=== PATIENT | female | born 1990 | race Caucasian/White ===

== ENCOUNTER 2017-01-14 01:56 | Inpatient (IN) ==
[2017-01-14] MEDS ORDERED: FAMOTIDINE 20 MG/2 ML VIAL IV PRN (03:02)
[2017-01-14] MEDS ORDERED: BUTORPHANOL 2 MG/ML VIAL IV PRN (03:02)
[2017-01-14] MEDS ORDERED: ONDANSETRON 4 MG/2 ML VIAL IV PRN ×2 (03:02→12:24)
[2017-01-14] MEDS ORDERED: AMPICILLIN INJ 2,000 MG in SODIUM CHLORIDE 0.9% 100 ML IV ONE (03:05)
[2017-01-14] MEDS ORDERED: BUTORPHANOL 1 MG/ML VIAL IV PRN (03:06)
[2017-01-14] MEDS ORDERED: CITRIC ACID/SODIUM CITRATE 30 ML UDCUP PO ONE (03:06)
[2017-01-14] MEDS ORDERED: ALUMINUM/MAGNES/SIMETH MAX STR 30 ML UDCUP PO PRN (03:07)
[2017-01-14] MEDS: LACTATED RINGERS 1,000 ML IV SCH ×3 (03:30→08:39)
[2017-01-14 04:04] LABS: Basophils % 0.3 % (0.0-0.8); Eosinophils # 0.1 10*3/uL (0.0-0.87); Eosinophils % 0.7 % (0.00-10.9); Hematocrit 29.1 VOL% (35.7-47.0); Hemoglobin 9.1 GM/DL (12.0-16.0); Immature Granulocytes % 1.2 %; Immature Granulocytes Absolute 0.13 #; Lymphocytes # 2.1 10*3/uL (1.4-4.0); Lymphocytes % 18.5 % (21.3-54.2); Mean Corpuscular HGB Conc 31.3 GM/DL (32-36); Mean Corpuscular Hemoglobin 27 PG (27-34); Mean Corpuscular Volume 87.4 FL (87-102); Monocytes # 0.7 10*3/uL (0.11-0.8); Monocytes % 6.4 % (1.7-12.7); NRBC # 0.02 10*3/uL; Neutrophils # 8.1 10*3/uL (1.4-7.4); Neutrophils % 72.9 % (38.7-73.9); Platelet Count 336 T/CUMM (130-400); Red Blood Count 3.33 MC/CUMM (3.8-5.5); Red Cell Distribution Width 14.7 % (9.3-17.3); White Blood Count 11.2 T/CUMM (4-12)
[2017-01-14 04:28] LABS: Calcium 8.6 MG/DL (8.5-10.1)
[2017-01-14 04:29] LABS: Albumin 2.7 G/DL (3.4-5.0); Osmolality,Calculated 278.3 MOS/KG (273-304); Total Protein 5.9 G/DL (6.4-8.3)
[2017-01-14] MEDS ORDERED: MEPERIDINE 50 MG/1 ML VIAL IV ONE (06:31)
--- NOTE | 2017-01-14 07:11 | OB/GYN History & Physical ---
History of Present Illness Chief complaint: 39 weeks admitted for elective induction History of present illness: Ms. Mills is a 26 year old female Multigravida at 39 weeks estimated gestational age admitted for elective induction. Ultrasound estimated weight is 7 pounds medical clinical pelvimetry. Is consequently admitted for Pitocin induction. The risks benefits alternatives explained patient detail informed consent was obtained and all the patient's questions were answered to her satisfaction Home Medications Medication Instructions Recorded Confirmed Type Multivitamin () [ 1 tablet PO DAILY 12/19/16 01/14/17 History Vitamin] Allergies Allergy/AdvReac Type Severity Reaction Status Date / Time No Known Allergies Allergy Verified 01/02/17 14:35 12 point system: reviewed and no additional remarkable complaints except as stated Medical,Surgical,& Family Hx - Medical History Reproductive: No history of: Ectopic , Complication - Surgical History Abdominal Surgeries: Patient denies: Abdominal Surgery Reproductive Surgeries: Patient denies;: Section - Family History Family History: Reports;: Family Diabetes (MGM) Denies;: Family Anesthesia Reaction, Family Cancer, Family Heart Disease, Family Hematology, Family Hypertension, Family Psychiatric Problems, Family Stroke, Additional Family History - Social History Smoking Status: Never smoker Frequency of Alcohol Use: None Type of Drug Use: None 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: Vital Signs Temp Pulse Resp BP 01/14/17 04:00 98.6 F 75 18 119/57 General appearance: normal weight, no acute distress - Head Head exam: Present: normal inspection, normocephalic, atraumatic - Eye Eye exam: Present: EOMI - ENT ENT exam: Present: normal exam - Neck Neck exam: Present: normal inspection - Breast Breasts: as per HPI Menstruation: as per HPI - Cardiovascular Cardiovascular exam: Present: regular rate and rhythm - GI/Abdominal GI/Abdominal exam: Present: normal bowel sounds - Extremities Exam Extremities exam: Present: normal inspection, normal capillary refill - Back Exam Back exam: Present: normal inspection - Neurological Exam Neurological exam: Present: alert, oriented X3 - Psychiatric Psychiatric exam: Present: normal affect, normal mood - Skin Skin exam: Present: normal color, warm Assessment and Plan (1) with 39 completed weeks gestation Status: Acute Current Visit: Yes Results - Labs CBC & BMP: 01/14/17 03:35 01/14/17 03:35
[2017-01-14] MEDS ORDERED: diphenhydrAMINE 50 MG/1 ML VIAL IV PRN ×2 (07:19)
[2017-01-14] MEDS ORDERED: PROMETHAZINE 25 MG/1 ML VIAL IM ONE (07:19)
[2017-01-14] MEDS ORDERED: ePHEDrine 50 MG/ML AMP IV PRN (07:19)
[2017-01-14] MEDS ORDERED: ONDANSETRON 4 MG/2 ML VIAL IV ONE (07:19)
[2017-01-14] MEDS ORDERED: hydrOXYzine HCL 25 MG/1 ML VIAL IM PRN (07:19)
[2017-01-14] MEDS: AMPICILLIN INJ 1,000 MG in SODIUM CHLORIDE 0.9% 100 ML IV SCH ×2 (07:28→11:54)
[2017-01-14] MEDS: OXYTOCIN/LR 20 UNIT/1,000 ML BAG IV SCH (08:06)
[2017-01-14] MEDS: fentaNYL 2 MCG/ROPIV 0.2% EPID 150 ML EPIDURAL SCH (08:08)
[2017-01-14 09:48] LABS: Apearance,Urine CLEAR (Clear); Bilirubin,Urine Negative (Negative); Blood, Urine Negative (Negative); Glucose,Urine (UA) Negative (Negative); Ketones,Urine Negative (Negative); Nitrite,Urine Negative (Negative); Protein,Urine Negative; Urine Color Yellow (Yellow); Urine Specific Gravity 1.009 (1.001-1.035); Urine Urobilinogen < 2.0 EU/DL (0.2-1.0); WBC,Urine 1 /HPF (0-6)
[2017-01-14] MEDS ORDERED: DIPH/TET/ACEL PERT BOOSTER VACCINE 0.5 ML VIAL IM ONE (12:24)
[2017-01-14] MEDS ORDERED: HYDROCORTISONE 2.5% RECTAL CREAM 30 GM TUBE TOP PRN (12:24)
[2017-01-14] MEDS ORDERED: BISACODYL 10 MG SUPP RECTAL PRN (12:24)
[2017-01-14] MEDS ORDERED: ACETAMINOPHEN 325 MG TABLET PO PRN (12:24)
[2017-01-14] MEDS ORDERED: MEASLES/MUMPS/RUBELLA VACCINE 0.5 ML VIAL SUBCUT ONE (12:24)
[2017-01-14] MEDS ORDERED: BENZOCAINE 20%/MENTHOL 0.5% SPRAY 56 GM CAN TOP PRN (12:24)
[2017-01-14] MEDS ORDERED: OXYTOCIN/LR 20 UNIT/1,000 ML BAG IV ONE (12:24)
[2017-01-14] MEDS ORDERED: LANOLIN 50% CREAM 0.3 OZ TUBE TOP PRN (12:24)
[2017-01-14] MEDS ORDERED: WITCH HAZEL PADS 100/JAR TOP PRN (12:24)
[2017-01-14] MEDS ORDERED: RHO(D) IMMUNE GLOBULIN 300 MCG SYRINGE IM ONE (12:24)
--- NOTE | 2017-01-14 12:24 | OB/GYN Progress Note ---
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 Combs dictating vaginal delivery And in LDR environment under sterile conditions, the patient progressed to completely dilated. She was allowed to push and under [epidural] anesthesia had a normal spontaneous vaginal delivery of a live born [male] unweighed Apgars pending over a intact perineum. The infant's nose and oropharynx were bulb and DeLee suctioned, and the infant had spontaneous cry after delivery. The cord was doubly clamped and cut and the infant was handed over to the pediatric team for care. Cord blood was obtained the placenta delivered spontaneously intact and IV Pitocin was done. There were no cervical tears. There were no periurethral tears. Estimated blood loss was 250 mL. There were no complications. The bladder was emptied using a catheter prior to delivery. All sponge needle and instrument counts were correct -3 at the end of the delivery. The infant was taken to nursery in stable condition Exam METEOROLOGIST IN CHARGE - Constitutional Vitals: Vital Signs Temp Pulse Resp BP Pulse Ox 01/14/17 08:00 98.7 F 73 20 120/63 100 01/14/17 04:00 98.6 F 75 18 119/57 Results - Labs CBC & BMP: 01/14/17 03:35 01/14/17 03:35
[2017-01-14] MEDS ORDERED: METHYLERGONOVINE 0.2 MG/1 ML AMP ONE (12:28)
[2017-01-14] MEDS: oxyCODONE/ACETAMINOPHEN 5-325 MG TABLET PO PRN ×2 (15:24→21:00)
[2017-01-14] MEDS: IBUPROFEN 800 MG TABLET PO PRN (18:50)
[2017-01-14] MEDS: DOCUSATE SODIUM 100 MG CAPSULE PO SCH (21:09)
[2017-01-15] MEDS: oxyCODONE/ACETAMINOPHEN 5-325 MG TABLET PO PRN ×3 (03:50→16:02)
[2017-01-15] MEDS: IBUPROFEN 800 MG TABLET PO PRN ×4 (03:50→21:45)
[2017-01-15 06:12] LABS: Basophils # 0.1 10*3/uL (0.0-0.2); Basophils % 0.3 % (0.0-0.8); Eosinophils # 0.2 10*3/uL (0.0-0.87); Eosinophils % 1.6 % (0.00-10.9); Hematocrit 22.5 VOL% (35.7-47.0); Immature Granulocytes Absolute 0.16 #; Lymphocytes # 2.9 10*3/uL (1.4-4.0); Lymphocytes % 18.8 % (21.3-54.2); Mean Corpuscular HGB Conc 31.6 GM/DL (32-36); Mean Corpuscular Hemoglobin 27 PG (27-34); Mean Corpuscular Volume 86.5 FL (87-102); Mean Platelet Volume 10.4 FL (9.6-12.0); Monocytes # 0.9 10*3/uL (0.11-0.8); Monocytes % 5.8 % (1.7-12.7); NRBC # 0.02 10*3/uL; Neutrophils # 11.1 10*3/uL (1.4-7.4); Neutrophils % 72.5 % (38.7-73.9); Platelet Count 288 T/CUMM (130-400); Red Cell Distribution Width 14.7 % (9.3-17.3)
[2017-01-15 06:25] LABS: Hemoglobin 7.1 GM/DL (12.0-16.0); White Blood Count 15.3 T/CUMM (4-12)
--- NOTE | 2017-01-15 08:36 | OB/GYN Progress Note ---
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: Subj Interval history: Patient is doing well she is eating ambulating and voiding She is afebrile and her vital signs are stable Her fundus is firm and contracted She has decreased lochia Assessment #1 day #1 doing well Plan continue present management with expected DC tomorrow Exam DENTURE LABORATORY TECHNICIAN - Constitutional Vitals: Vital Signs Temp Pulse Resp BP Pulse Ox 01/15/17 08:00 60 18 01/15/17 07:26 97.3 F L 60 18 99/60 97 01/15/17 02:00 19 01/14/17 17:30 98.0 F 68 16 115/73 98 01/14/17 16:30 97.8 F 65 16 113/70 98 01/14/17 15:28 97.6 F 75 16 126/76 98 01/14/17 15:00 98.0 F 64 16 131/48 99 01/14/17 14:30 98.0 F 68 16 127/90 99 Results - Labs CBC & BMP: 01/15/17 05:14 01/14/17 03:35
[2017-01-15] MEDS: DOCUSATE SODIUM 100 MG CAPSULE PO SCH ×2 (08:47→20:49)
[2017-01-15] MEDS: MULTIVITAMIN (PRENATAL) TABLET PO SCH (08:47)
[2017-01-15] MEDS: FERROUS SULFATE 325 MG TABLET PO SCH (20:49)
[2017-01-16] MEDS: oxyCODONE/ACETAMINOPHEN 5-325 MG TABLET PO PRN ×3 (02:04→08:05)
[2017-01-16] MEDS: fentaNYL 2 MCG/ROPIV 0.2% EPID 150 ML EPIDURAL SCH (04:12)
[2017-01-16] MEDS: OXYTOCIN/LR 20 UNIT/1,000 ML BAG IV SCH (04:12)
--- NOTE | 2017-01-16 06:47 | Anesthesia Post-Op ---
Anesthesia Post OP - Post Ansesthetic Evaluation Patient seen in post op: Yes Resp: within normal limits CV: within normal limits Mental: within normal limits Temp: within normal limits [id number]-[id number]-[id number]: within normal limits Nausea and Vomiting: within normal limits Pain: within normal limits
[2017-01-16 07:47] VITALS: BP 120/74
[2017-01-16] MEDS: IBUPROFEN 800 MG TABLET PO PRN (08:05)
[2017-01-16] MEDS: MULTIVITAMIN (PRENATAL) TABLET PO SCH (08:05)
[2017-01-16] MEDS: FERROUS SULFATE 325 MG TABLET PO SCH (08:05)
[2017-01-16] MEDS: DOCUSATE SODIUM 100 MG CAPSULE PO SCH (08:05)
--- NOTE | 2017-01-16 10:08 | Discharge Summary ---
Hospital Course - Hospital Course Hospital Course: patient did well. She had quick return of bowel bladder function management afebrile and normotensive throughout her hospitalization. She is constantly discharged on day #2 on a regular diet Diagnosis - Discharge Diagnosis (1) with 39 completed weeks gestation Status: Acute Specialty Discharge - Follow Up or Referrals Follow up with: Jason Combs MD [Physician] - Discharge Plan - Discharge Data Disposition: Disch To Home/Self Care Condition at Discharge: Stable Discharge Diet: regular diet Activity: resume usual activities as tolerated, other (Pelvic rest) Hygiene: may shower Weight Bearing at Discharge: full weight bearing Driving: no restrictions Contact your physician if you experience:: fever over 101, Difficulty voiding, Redness or swelling, Nausea/Vomiting, Shortness of breath, Bleeding, pain uncontrolled by pain medications - Discharge Medications New Acetamin/Codeine 300-30 Tab [Tylenol/Codeine #3] 1 tablet PO Q4H PRN #15 tablet PRN Reason: Abdominal Pain Continue Multivitamin () [ Vitamin] 1 tablet PO DAILY - Follow Up or Referral Follow Up: Jason Combs MD [Physician] - 2 Weeks - Forms/Instructions Instructions: Vaginal Delivery (DC), Bleeding (DC) Exam - Constitutional Vitals: Period Temp Pulse Resp BP Sys/Archibald Pulse Ox Last 24 Hr 97.1 F-98.2 F 57-77 18-20 112-132/59-83 97-100 DS: Provider Date of admission: 01/14/17 03:02 Primary care physician: . No PCP Attending physician on admission: Jessica Recinos Consults: 01/14/17 03:02 Consult to Anesthesiology [CONS] Routine Consulting Provider: Reason for Anesthesiology: Epidural Consult Comment: Epidural for pain managment 01/14/17 12:25 Consult to Industrial Plant Custodian [CONS] Routine Consult Industrial Plant Custodian: Breast Feeding Discharging clinician: Jessica Recinos Expected date of discharge: 01/16/17
== END 2017-01-16 12:30 | disposition home or self-care (01) | DRG 560 ==
LOC: N.LDOUT 01:56 → N.LD 02:00 → N.OB 14:26
PROVIDERS: ADMIT Specialist; ATTEND Specialist

== ENCOUNTER 2019-05-14 19:44 | Inpatient (IN) ==
[2019-05-14] MEDS ORDERED: BUTORPHANOL 2 MG/ML VIAL IV PRN (20:02)
[2019-05-14] MEDS ORDERED: ONDANSETRON 4 MG/2 ML VIAL IV PRN ×2 (20:02→21:34)
[2019-05-14] MEDS ORDERED: LACTATED RINGERS 250 ML IV ONE (20:02)
[2019-05-14] MEDS ORDERED: FAMOTIDINE 20 MG/2 ML VIAL IV ONE (20:03)
[2019-05-14] MEDS ORDERED: hydrOXYzine HCL 25 MG/1 ML VIAL IM PRN (20:03)
[2019-05-14] MEDS ORDERED: diphenhydrAMINE 50 MG/1 ML VIAL IV PRN ×2 (20:03)
[2019-05-14] MEDS ORDERED: ePHEDrine 50 MG/ML AMP IV PRN (20:03)
[2019-05-14] MEDS ORDERED: CITRIC ACID/SODIUM CITRATE 30 ML UDCUP PO ONE (20:03)
[2019-05-14] MEDS ORDERED: PROMETHAZINE 25 MG/1 ML VIAL IM ONE (20:03)
[2019-05-14] MEDS ORDERED: LACTATED RINGERS 1,000 ML IV ONE (20:03)
[2019-05-14] MEDS ORDERED: NALOXONE 0.4 MG/ML VIAL IV PRN (20:03)
[2019-05-14 20:16] LABS: Basophils # 0.1 10*3/uL (0.0-0.2); Basophils % 0.5 % (0.0-0.8); Eosinophils # 0.1 10*3/uL (0.0-0.87); Eosinophils % 0.4 % (0.00-10.9); Hematocrit 27.5 VOL% (35.7-47.0); Immature Granulocytes % 1.2 %; Immature Granulocytes Absolute 0.15 #; Lymphocytes # 2.1 10*3/uL (1.4-4.0); Lymphocytes % 16.1 % (21.3-54.2); Mean Corpuscular HGB Conc 29.1 GM/DL (32-36); Mean Corpuscular Volume 77.7 FL (87-102); Mean Platelet Volume 9.8 FL (9.6-12.0); Monocytes % 4.3 % (1.7-12.7); NRBC # 0.03 10*3/uL; Neutrophils % 77.5 % (38.7-73.9); Platelet Count 362 T/CUMM (130-400); Red Blood Count 3.54 MC/CUMM (3.8-5.5); Red Cell Distribution Width 16.1 % (9.3-17.3); White Blood Count 12.7 T/CUMM (4-12)
[2019-05-14 20:23] LABS: Apearance,Urine CLEAR (Clear); Bilirubin,Urine Negative (Negative); Blood, Urine Small mg/dL (Negative); Glucose,Urine (UA) Negative (Negative); Ketones,Urine Negative (Negative); Mucus,Urine Occasional /LPF (Occasional); Nitrite,Urine Negative (Negative); Protein,Urine Negative; RBC,Urine 8 /HPF (0-4); Squamous Epithelial Cell,Urine Occasional /HPF (0-10); Urine Color Yellow (Yellow); Urine Specific Gravity 1.008 (1.001-1.035); Urine Urobilinogen < 2.0 EU/DL (0.2-1.0); WBC,Urine 6 /HPF (0-6)
[2019-05-14] MEDS ORDERED: fentaNYL 2 MCG/ROPIV 0.2% EPID 100 ML EPIDURAL SCH (20:30)
[2019-05-14] MEDS ORDERED: OXYTOCIN/LR 20 UNIT/1,000 ML BAG IV SCH (20:30)
[2019-05-14] MEDS ORDERED: LACTATED RINGERS 1,000 ML IV SCH (20:30)
[2019-05-14 20:31] LABS: Barbiturates Screen,Urine Negative (Negative); Benzodiazepines Screen,Urine Negative (Negative); Cannabinoid Screen,Urine Negative (Negative); Opiate Screen,Urine Positive (Negative); Phencyclidine Screen,Urine Negative (Negative)
[2019-05-14 20:38] LABS: Albumin 2.5 G/DL (3.4-5.0); Bilirubin,Total 0.7 MG/DL (0.2-1.0); Calcium 8.2 MG/DL (8.5-10.1); Osmolality,Calculated 271.7 MOS/KG (273-304); Total Protein 6.8 G/DL (6.4-8.3)
[2019-05-14] MEDS ORDERED: LIDOCAINE 1% 50 ML VIAL ONE (20:54)
[2019-05-14] MEDS ORDERED: miSOPROStoL 200 MCG TABLET ONE (20:55)
[2019-05-14] MEDS ORDERED: METHYLERGONOVINE 0.2 MG/1 ML AMP ONE (20:55)
[2019-05-14] MEDS ORDERED: CARBOPROST TROMETHAMINE 250 MCG/ML AMP IM ONE (20:55)
[2019-05-14] MEDS ORDERED: LANOLIN 50% CREAM 0.3 OZ TUBE TOP PRN (21:34)
[2019-05-14] MEDS ORDERED: RHO(D) IMMUNE GLOBULIN 300 MCG SYRINGE IM ONE (21:34)
[2019-05-14] MEDS ORDERED: BENZOCAINE 20%/MENTHOL 0.5% SPRAY 56 GM CAN TOP PRN (21:34)
[2019-05-14] MEDS ORDERED: HYDROCORTISONE 2.5% RECTAL CREAM 30 GM TUBE TOP PRN (21:34)
[2019-05-14] MEDS ORDERED: DIPH/TET/ACEL PERT BOOSTER VACCINE 0.5 ML VIAL IM ONE (21:34)
[2019-05-14] MEDS ORDERED: oxyCODONE/ACETAMINOPHEN 5-325 MG TABLET PO PRN (21:34)
[2019-05-14] MEDS ORDERED: MEASLES/MUMPS/RUBELLA VACCINE 0.5 ML VIAL SUBCUT ONE (21:34)
[2019-05-14] MEDS ORDERED: BISACODYL 10 MG SUPP RECTAL PRN (21:34)
[2019-05-14] MEDS ORDERED: OXYTOCIN/LR 20 UNIT/1,000 ML BAG IV ONE (21:34)
[2019-05-14] MEDS ORDERED: WITCH HAZEL PADS 100/JAR TOP PRN (21:34)
[2019-05-14] MEDS ORDERED: ACETAMINOPHEN 325 MG TABLET PO PRN (21:34)
[2019-05-15] MEDS: IBUPROFEN 800 MG TABLET PO PRN ×2 (01:53→11:22)
[2019-05-15] MEDS ORDERED: METHYLERGONOVINE 0.2 MG/1 ML AMP IM STA (02:25)
[2019-05-15] MEDS ORDERED: METHYLERGONOVINE 0.2 MG/1 ML AMP ONE (02:27)
[2019-05-15 05:22] LABS: Basophils # 0.1 10*3/uL (0.0-0.2); Basophils % 0.5 % (0.0-0.8); Eosinophils # 0.1 10*3/uL (0.0-0.87); Eosinophils % 0.4 % (0.00-10.9); Hematocrit 25.8 VOL% (35.7-47.0); Hemoglobin 7.6 GM/DL (12.0-16.0); Immature Granulocytes % 0.8 %; Lymphocytes # 2.1 10*3/uL (1.4-4.0); Lymphocytes % 15.5 % (21.3-54.2); Mean Corpuscular HGB Conc 29.5 GM/DL (32-36); Mean Corpuscular Volume 76.3 FL (87-102); Mean Platelet Volume 10.5 FL (9.6-12.0); Monocytes % 5.6 % (1.7-12.7); NRBC # 0.02 10*3/uL; Neutrophils % 77.2 % (38.7-73.9); Platelet Count 349 T/CUMM (130-400); Red Blood Count 3.38 MC/CUMM (3.8-5.5); White Blood Count 13.3 T/CUMM (4-12)
[2019-05-15] MEDS: DOCUSATE SODIUM 100 MG CAPSULE PO SCH ×2 (09:16→20:40)
[2019-05-15] MEDS: oxyCODONE/ACETAMINOPHEN 5-325 MG TABLET PO PRN (11:20)
[2019-05-15] MEDS: FERROUS SULFATE 325 MG TABLET PO SCH (20:40)
[2019-05-16] MEDS: IBUPROFEN 800 MG TABLET PO PRN ×2 (01:20→09:25)
[2019-05-16] MEDS: oxyCODONE/ACETAMINOPHEN 5-325 MG TABLET PO PRN ×2 (01:20→09:28)
[2019-05-16] MEDS: FERROUS SULFATE 325 MG TABLET PO SCH (09:26)
[2019-05-16] MEDS: DOCUSATE SODIUM 100 MG CAPSULE PO SCH (09:26)
[2019-05-16 13:30] VITALS: BP 118/61
== END 2019-05-16 15:44 | disposition home or self-care (01) | DRG 560 ==
LOC: N.LDOUT 19:44 → N.LD 19:46 → N.OB 23:03
PROVIDERS: ADMIT Specialist; ATTEND Specialist

== ENCOUNTER 2020-08-22 18:26 | Inpatient (IN) ==
[2020-08-22] MEDS ORDERED: ACETAMINOPHEN 325 MG TABLET PO PRN ×2 (18:47→21:12)
[2020-08-22] MEDS ORDERED: MEPERIDINE 50 MG/1 ML VIAL IM PRN (18:47)
[2020-08-22] MEDS ORDERED: ONDANSETRON 4 MG/2 ML VIAL IV PRN ×2 (18:47→21:12)
[2020-08-22] MEDS ORDERED: BUTORPHANOL 2 MG/ML VIAL IV PRN (18:47)
[2020-08-22] MEDS ORDERED: LACTATED RINGERS 500 ML IV PRN (18:47)
[2020-08-22] MEDS ORDERED: FAMOTIDINE 20 MG/2 ML VIAL IV ONE ×2 (19:00→19:01)
[2020-08-22] MEDS ORDERED: ONDANSETRON 4 MG/2 ML VIAL IV ONE (19:00)
[2020-08-22] MEDS ORDERED: LACTATED RINGERS 1,000 ML IV ONE (19:00)
[2020-08-22] MEDS ORDERED: PROMETHAZINE 25 MG/1 ML VIAL IM ONE (19:00)
[2020-08-22] MEDS ORDERED: NALOXONE 0.4 MG/ML VIAL IV PRN (19:00)
[2020-08-22] MEDS ORDERED: diphenhydrAMINE 50 MG/1 ML VIAL IV PRN ×2 (19:00)
[2020-08-22] MEDS ORDERED: hydrOXYzine HCL 25 MG/1 ML VIAL IM PRN (19:00)
[2020-08-22] MEDS ORDERED: CITRIC ACID/SODIUM CITRATE 30 ML UDCUP PO ONE (19:00)
[2020-08-22] MEDS ORDERED: fentaNYL 2 MCG/ROPIV 0.2% EPID 100 ML EPIDURAL SCH (19:00)
[2020-08-22] MEDS ORDERED: CITRIC ACID/SODIUM CITRATE 30 ML UDCUP ONE (19:00)
[2020-08-22] MEDS ORDERED: ePHEDrine 50 MG/ML VIAL IV PRN (19:00)
[2020-08-22] MEDS ORDERED: LACTATED RINGERS 1,000 ML IV SCH (19:00)
[2020-08-22] MEDS ORDERED: miSOPROStoL 200 MCG TABLET ONE (19:07)
[2020-08-22] MEDS ORDERED: METHYLERGONOVINE 0.2 MG/1 ML AMP ONE (19:07)
[2020-08-22] MEDS ORDERED: TRANEXAMIC ACID 1,000 MG/10 ML VIAL ONE (19:07)
[2020-08-22] MEDS ORDERED: OXYTOCIN/LR 20 UNIT/1,000 ML BAG IV ONE ×2 (19:07→21:12)
[2020-08-22] MEDS ORDERED: CARBOPROST TROMETHAMINE 250 MCG/ML AMP IM ONE (19:07)
[2020-08-22] MEDS ORDERED: SODIUM CHLORIDE 0.9% 0 ML IV ONE (19:08)
[2020-08-22] MEDS ORDERED: LIDOCAINE 1% 50 ML VIAL ONE (19:08)
[2020-08-22 19:14] LABS: Basophils # 0.1 10*3/uL (0.0-0.2); Basophils % 0.5 % (0.0-0.8); Eosinophils # 0.1 10*3/uL (0.0-0.87); Eosinophils % 0.6 % (0.00-10.9); Hematocrit 27.8 VOL% (35.7-47.0); Hemoglobin 8.4 GM/DL (12.0-16.0); Immature Granulocytes % 1.7 %; Immature Granulocytes Absolute 0.26 #; Lymphocytes # 2.5 10*3/uL (1.4-4.0); Lymphocytes % 16.4 % (21.3-54.2); Mean Corpuscular HGB Conc 30.2 GM/DL (32-36); Mean Corpuscular Volume 78.8 FL (87-102); Mean Platelet Volume 9.1 FL (9.6-12.0); Monocytes % 5.9 % (1.7-12.7); NRBC # 0.02 10*3/uL; Neutrophils % 74.9 % (38.7-73.9); Platelet Count 441 T/CUMM (130-400); Red Blood Count 3.53 MC/CUMM (3.8-5.5); White Blood Count 15.3 T/CUMM (4-12)
[2020-08-22 19:31] LABS: Albumin 2.8 G/DL (3.4-5.0); Bilirubin,Total 0.6 MG/DL (0.2-1.0); Calcium 8.6 MG/DL (8.5-10.1); Osmolality,Calculated 277.3 MOS/KG (273-304); Potassium 3.5 MMOL/L (3.5-5.1); Total Protein 6.7 G/DL (6.4-8.3)
[2020-08-22 20:30] LABS: Bilirubin,Urine Negative (Negative); Blood, Urine Large mg/dL (Negative); Glucose,Urine (UA) Negative (Negative); Ketones,Urine Negative (Negative); Nitrite,Urine Negative (Negative); Protein,Urine Negative; Urine Appearance Slightly Hazy (Clear); Urine Color Yellow (Yellow); Urine Specific Gravity 1.016 (1.001-1.035)
[2020-08-22] MEDS ORDERED: OXYTOCIN/LR 20 UNIT/1,000 ML BAG IV SCH (20:30)
[2020-08-22] MEDS ORDERED: HYDROCORTISONE 2.5% RECTAL CREAM 30 GM TUBE TOP PRN (21:12)
[2020-08-22] MEDS ORDERED: RHO(D) IMMUNE GLOBULIN 300 MCG SYRINGE IM ONE (21:12)
[2020-08-22] MEDS ORDERED: MEASLES/MUMPS/RUBELLA VACCINE 0.5 ML VIAL SUBCUT ONE (21:12)
[2020-08-22] MEDS ORDERED: BENZOCAINE 20%/MENTHOL 0.5% SPRAY 56 GM CAN TOP PRN (21:12)
[2020-08-22] MEDS ORDERED: BISACODYL 10 MG SUPP RECTAL PRN (21:12)
[2020-08-22] MEDS ORDERED: LANOLIN 50% CREAM 0.3 OZ TUBE TOP PRN (21:12)
[2020-08-22] MEDS ORDERED: WITCH HAZEL PADS 100/JAR TOP PRN (21:12)
[2020-08-22] MEDS ORDERED: DIPH/TET/ACEL PERT BOOSTER VACCINE 0.5 ML VIAL IM ONE (21:12)
[2020-08-22 21:25] LABS: Cord Venous Blood HCO3 23.9 MMOL/L; Cord Venous Blood PCO2 46.7 MMHG; Cord Venous Blood PO2 28.5
[2020-08-22 22:05] LABS: Bilirubin,Urine Negative (Negative); Blood, Urine Moderate mg/dL (Negative); Glucose,Urine (UA) Negative (Negative); Ketones,Urine Negative (Negative); Nitrite,Urine Negative (Negative); Protein,Urine Negative; Urine Appearance CLOUDY (Clear); Urine Color Yellow (Yellow); Urine Specific Gravity 1.015 (1.001-1.035)
[2020-08-22 22:09] LABS: Amorphous Crystals,Urine Occasional /HPF (Few); RBC,Urine 202 /HPF (0-4); WBC,Urine 2 /HPF (0-6)
[2020-08-22 22:27] LABS: Barbiturates Screen,Urine Negative (Negative); Benzodiazepines Screen,Urine Negative (Negative); Cannabinoid Screen,Urine Negative (Negative); Opiate Screen,Urine Negative (Negative); Phencyclidine Screen,Urine Negative (Negative)
[2020-08-23] MEDS: IBUPROFEN 800 MG TABLET PO PRN ×2 (03:34→17:56)
[2020-08-23 04:23] LABS: Basophils # 0.1 10*3/uL (0.0-0.2); Basophils % 0.6 % (0.0-0.8); Eosinophils # 0.2 10*3/uL (0.0-0.87); Eosinophils % 0.9 % (0.00-10.9); Hematocrit 26.6 VOL% (35.7-47.0); Hemoglobin 7.9 GM/DL (12.0-16.0); Immature Granulocytes % 1.1 %; Immature Granulocytes Absolute 0.18 #; Lymphocytes # 2.9 10*3/uL (1.4-4.0); Lymphocytes % 17.8 % (21.3-54.2); Mean Corpuscular HGB Conc 29.7 GM/DL (32-36); Mean Corpuscular Volume 79.6 FL (87-102); Monocytes % 5.4 % (1.7-12.7); Neutrophils % 74.2 % (38.7-73.9); Platelet Count 396 T/CUMM (130-400); Red Blood Count 3.34 MC/CUMM (3.8-5.5); Red Cell Distribution Width 14.9 % (9.3-17.3); White Blood Count 16.2 T/CUMM (4-12)
[2020-08-23] MEDS: DOCUSATE SODIUM 100 MG CAPSULE PO SCH ×2 (10:07→20:19)
[2020-08-23] MEDS: FERROUS SULFATE 325 MG TABLET PO SCH ×3 (10:07→20:19)
[2020-08-24] MEDS: IBUPROFEN 800 MG TABLET PO PRN (06:40)
[2020-08-24 07:14] VITALS: BP 123/72
[2020-08-24] MEDS: FERROUS SULFATE 325 MG TABLET PO SCH ×2 (07:29→10:25)
[2020-08-24] MEDS: DOCUSATE SODIUM 100 MG CAPSULE PO SCH (10:25)
== END 2020-08-24 11:05 | disposition home or self-care (01) | DRG 560 ==
LOC: N.LDOUT 18:26 → N.LD 18:27 → N.OB 08-23 00:22
PROVIDERS: ADMIT Specialist; ATTEND Specialist

== ENCOUNTER 2022-03-16 21:44 | Observation (INO) ==
[2022-03-16 22:38] LABS: Basophils % 0.3 % (0.0-0.8); Eosinophils # 0.1 10*3/uL (0.0-0.87); Eosinophils % 0.9 % (0.00-10.9); Hematocrit 30.1 VOL% (35.7-47.0); Hemoglobin 9.8 GM/DL (12.0-16.0); Immature Granulocytes % 1.5 %; Immature Granulocytes Absolute 0.15 #; Lymphocytes # 1.6 10*3/uL (1.4-4.0); Lymphocytes % 15.4 % (21.3-54.2); Mean Corpuscular HGB Conc 32.6 GM/DL (32-36); Mean Corpuscular Volume 83.6 FL (87-102); Mean Platelet Volume 9.3 FL (9.6-12.0); Monocytes # 0.6 10*3/uL (0.11-0.8); Monocytes % 5.8 % (1.7-12.7); Neutrophils % 76.1 % (38.7-73.9); Platelet Count 308 T/CUMM (130-400); Red Cell Distribution Width 15.8 % (9.3-17.3); White Blood Count 10.3 T/CUMM (4-12)
[2022-03-16 22:49] LABS: PT Patient Result 10.9 SECS (10.1-12.1)
[2022-03-16 22:52] LABS: RBC,Urine 1 /HPF (0-4); Squamous Epithelial Cell,Urine Occasional /HPF (0-10)
[2022-03-16 22:53] LABS: Glucose,Urine (UA) Negative (Negative); Ketones,Urine Negative (Negative); Protein,Urine Negative (Negative); Urine Appearance Clear (Clear); Urine Color Yellow (Yellow); Urine Specific Gravity 1.005 (1.001-1.035)
[2022-03-16 22:54] LABS: Bilirubin,Urine Negative (Negative); Blood, Urine Moderate mg/dL (Negative); Nitrite,Urine Negative (Negative); Urine Urobilinogen 0.2 eU/dL (<2.0)
[2022-03-16] MEDS ORDERED: metroNIDAZOLE INJ 500 MG/100 ML PREMIX IV ONE (23:18)
[2022-03-16] MEDS ORDERED: ONDANSETRON 4 MG/2 ML VIAL IV PRN (23:18)
[2022-03-16] MEDS ORDERED: OXYTOCIN/LR 20 UNIT/1,000 ML BAG IV PRN (23:27)
[2022-03-16] MEDS: ceFAZolin 2,000 MG/50 ML DUPLEX IV SCH (23:32)
[2022-03-16] MEDS: LACTATED RINGERS 1,000 ML IV SCH (23:32)
[2022-03-16] MEDS: miSOPROStoL 200 MCG TABLET VAG SCH (23:32)
[2022-03-16 23:45] LABS: Calcium 8.3 MG/DL (8.5-10.1); Osmolality,Calculated 277.4 MOS/KG (273-304); Potassium 3.4 MMOL/L (3.5-5.1)
[2022-03-17 00:55] LABS: Barbiturates Screen,Urine Negative (Negative); Benzodiazepines Screen,Urine Negative (Negative); Cannabinoid Screen,Urine Negative (Negative); Opiate Screen,Urine Negative (Negative); Phencyclidine Screen,Urine Negative (Negative)
[2022-03-17] MEDS: miSOPROStoL 200 MCG TABLET VAG SCH ×3 (03:50→15:22)
[2022-03-17] MEDS: BUTORPHANOL 1 MG/ML VIAL IV PRN ×3 (05:33→15:09)
[2022-03-17] MEDS: ceFAZolin 2,000 MG/50 ML DUPLEX IV SCH (08:15)
[2022-03-17] MEDS: LACTATED RINGERS 1,000 ML IV SCH ×2 (08:30→16:41)
[2022-03-17] MEDS ORDERED: miSOPROStoL 200 MCG TABLET PO ONE (11:36)
[2022-03-17] MEDS ORDERED: PIPERACILLIN/TAZOBACTAM 3,375 MG in SODIUM CHLORIDE 0.9% 100 ML IV SCH (12:00)
[2022-03-17] MEDS ORDERED: SODIUM CHLORIDE 0.9% 1,000 ML IV PRN ×2 (16:25→22:13)
[2022-03-17 16:59] LABS: Basophils % 0.2 % (0.0-0.8); Eosinophils # 0.1 10*3/uL (0.0-0.87); Eosinophils % 1.4 % (0.00-10.9); Hematocrit 25.9 VOL% (35.7-47.0); Hemoglobin 8.2 GM/DL (12.0-16.0); Immature Granulocytes % 1.7 %; Immature Granulocytes Absolute 0.14 #; Lymphocytes # 1.5 10*3/uL (1.4-4.0); Lymphocytes % 18.9 % (21.3-54.2); Mean Corpuscular HGB Conc 31.7 GM/DL (32-36); Mean Corpuscular Volume 85.8 FL (87-102); Mean Platelet Volume 9.6 FL (9.6-12.0); Monocytes # 0.7 10*3/uL (0.11-0.8); Monocytes % 8.8 % (1.7-12.7); Platelet Count 308 T/CUMM (130-400); Red Blood Count 3.02 MC/CUMM (3.8-5.5); White Blood Count 8.1 T/CUMM (4-12)
[2022-03-17] MEDS ORDERED: SODIUM CHLORIDE 0.9% 100 ML IV ONE (18:18)
[2022-03-17] MEDS ORDERED: TRANEXAMIC ACID 1,000 MG/10 ML VIAL ONE (18:18)
[2022-03-17] MEDS ORDERED: TRANEXAMIC ACID 1,000 MG in SODIUM CHLORIDE 0.9% 100 ML IV ONE (18:20)
[2022-03-17] MEDS ORDERED: FAMOTIDINE 20 MG/2 ML VIAL IV ONE (18:58)
[2022-03-17] MEDS ORDERED: CITRIC ACID/SODIUM CITRATE 30 ML UDCUP PO ONE (18:58)
[2022-03-17] MEDS ORDERED: SUCCINYLCHOLINE 200 MG/10 ML VIAL ONE (19:27)
[2022-03-17] MEDS ORDERED: SEVOFLURANE 1 UNIT/15 MINUTE INH ONE ×3 (19:27→20:09)
[2022-03-17] MEDS ORDERED: LIDOCAINE 2% 5 ML VIAL ONE (19:27)
[2022-03-17] MEDS ORDERED: ETOMIDATE 40 MG/20 ML VIAL IV ONE (19:27)
[2022-03-17] MEDS ORDERED: DEXAMETHASONE 4 MG/1 ML VIAL ONE ×2 (19:28→19:29)
[2022-03-17] MEDS ORDERED: ONDANSETRON 4 MG/2 ML VIAL ONE ×2 (19:28→20:08)
[2022-03-17] MEDS ORDERED: propofoL 200 MG/20 ML VIAL IV ONE (19:28)
[2022-03-17] MEDS ORDERED: MIDAZOLAM 2 MG/2 ML VIAL ONE (19:28)
[2022-03-17] MEDS ORDERED: ACETAMINOPHEN INJ 1,000 MG/100 ML VIAL IV ONE (19:29)
[2022-03-17] MEDS ORDERED: PHENYLEPHRINE 1 MG/10 ML SYRINGE IV ONE ×2 (19:51→20:28)
[2022-03-17] MEDS ORDERED: LACTATED RINGERS 1,000 ML IV ONE (19:59)
[2022-03-17] MEDS ORDERED: miSOPROStoL 100 MCG TABLET ONE (20:05)
[2022-03-17] MEDS ORDERED: IBUPROFEN 800 MG TABLET PO PRN (21:26)
[2022-03-17 21:58] LABS: Basophils % 0.2 % (0.0-0.8); Eosinophils % 0.3 % (0.00-10.9); Hematocrit 22.3 VOL% (35.7-47.0); Hemoglobin 7.3 GM/DL (12.0-16.0); Immature Granulocytes % 3.3 %; Immature Granulocytes Absolute 0.37 #; Lymphocytes # 0.8 10*3/uL (1.4-4.0); Lymphocytes % 7.2 % (21.3-54.2); Mean Corpuscular HGB Conc 32.7 GM/DL (32-36); Mean Corpuscular Volume 82.9 FL (87-102); Mean Platelet Volume 9.3 FL (9.6-12.0); Monocytes # 0.3 10*3/uL (0.11-0.8); Monocytes % 2.5 % (1.7-12.7); Neutrophils % 86.5 % (38.7-73.9); Platelet Count 284 T/CUMM (130-400); Red Blood Count 2.69 MC/CUMM (3.8-5.5); Red Cell Distribution Width 16.1 % (9.3-17.3); White Blood Count 11.1 T/CUMM (4-12)
[2022-03-17] MEDS ORDERED: LACTATED RINGERS 1,000 ML IV SCH (22:09)
[2022-03-18 06:15] LABS: Basophils % 0.2 % (0.0-0.8); Hematocrit 23.7 VOL% (35.7-47.0); Hemoglobin 7.8 GM/DL (12.0-16.0); Immature Granulocytes % 4.2 %; Immature Granulocytes Absolute 0.39 #; Lymphocytes % 10.3 % (21.3-54.2); Mean Corpuscular HGB Conc 32.9 GM/DL (32-36); Mean Corpuscular Volume 82.9 FL (87-102); Mean Platelet Volume 9.5 FL (9.6-12.0); Monocytes # 0.3 10*3/uL (0.11-0.8); Monocytes % 3.3 % (1.7-12.7); Platelet Count 316 T/CUMM (130-400); Red Blood Count 2.86 MC/CUMM (3.8-5.5); Red Cell Distribution Width 15.9 % (9.3-17.3); White Blood Count 9.3 T/CUMM (4-12)
[2022-03-18 09:03] VITALS: BP 97/54
== END 2022-03-18 12:30 | disposition home or self-care (01) ==
LOC: EDUNIT# → EDBD → N.LD 21:44 → N.ED 21:44 → N.LD 23:11 → N.OB 03-17 21:11
PROVIDERS: ADMIT Student in an Organized Health Care Education/Training Program; ATTEND Student in an Organized Health Care Education/Training Program